=== PATIENT | female | born 1995 | race Caucasian/White ===

== ENCOUNTER 2021-04-08 23:47 | Emergency (ER) | payer OTHER ==
[~2021-04-08] VITALS: Ht 162.6 cm; Wt 59.1 kg
[2021-04-08] MEDS ORDERED: UNKNOWN ANXIETY MED (23:56)
[2021-04-09 01:11] LABS: HEMATOCRIT 50.5 % (36.0-47.0); HEMOGLOBIN 16.5 g/dl (12.0-15.5); MEAN CORPUSCULAR HEMOGLOBIN 30.3 pg (27.0-33.0); MEAN CORPUSCULAR HGB CONC 32.7 g/dl (32.0-36.5); MEAN CORPUSCULAR VOLUME 92.7 fl (80.0-96.0); PLATELET COUNT, AUTOMATED 296 10^3/uL (150-450); RED BLOOD COUNT 5.45 10^6/uL (4.00-5.40); WHITE BLOOD COUNT 8.1 10^3/uL (4.0-10.0)
[2021-04-09 01:18] LABS: AMPHETAMINES LEVEL URINE NEGATIVE (NEGATIVE); BARBITURATES URINE NEGATIVE (NEGATIVE); BENZODIAZEPINES URINE NEGATIVE (NEGATIVE); CANNABINOIDS URINE NEGATIVE (NEGATIVE); COCAINE METABOLITE URINE NEGATIVE (NEGATIVE); METHADONE URINE NEGATIVE (NEGATIVE); OPIATES URINE NEGATIVE (NEGATIVE); PHENCYCLIDINE URINE NEGATIVE (NEGATIVE)
[2021-04-09] MEDS ORDERED: LEXA1TAB2 PO (01:40)
[2021-04-09] MEDS ORDERED: HYDR-3363 PO (01:42)
[2021-04-09] MEDS ORDERED: MONT10TA97 PO (01:42)
[2021-04-09] MEDS ORDERED: MED REC COMMENT (01:42)
[2021-04-09] MEDS ORDERED: HOME MED LIST COMPLETE! XX SCH (01:45)
[2021-04-09 01:47] LABS: ACETAMINOPHEN LEVEL < 2.0 UG/ML (10.0-30.0); ALBUMIN 4.3 GM/DL (3.2-5.2); ALT/SGPT 18 U/L (12-78); BILIRUBIN,DIRECT 0.1 MG/DL (0.0-0.2); BILIRUBIN,TOTAL 0.3 MG/DL (0.2-1.0); BLOOD UREA NITROGEN 8 MG/DL (7-18); CALCIUM LEVEL 8.9 MG/DL (8.5-10.1); CARBON DIOXIDE LEVEL 27 MEQ/L (21-32); CHLORIDE LEVEL 107 MEQ/L (98-107); CREATININE FOR GFR 0.81 MG/DL (0.55-1.30); ETHYL ALCOHOL (ETHANOL) 0.301 % (0.000-0.010); GLOMERULAR FILTRATION RATE > 60.0 (>60); GLUCOSE, FASTING 108 MG/DL (70-100); SALICYLATE LEVEL < 1.7 MG/DL (5.0-30.0); SODIUM LEVEL 143 MEQ/L (136-145); TOTAL PROTEIN 7.8 GM/DL (6.4-8.2)
[2021-04-09] MEDS ORDERED: ACETAMINOPHEN TAB 650MG DOSE (2X325MG) PO ONE ×3 (04:35→21:35)
[2021-04-09] MEDS ORDERED: ONDANSETRON 4 MG ORAL DISINTEGRATING TAB PO ONE ×2 (04:35→09:20)
[2021-04-09] MEDS ORDERED: NS 1,000 ML IV ONE ×2 (04:40)
[2021-04-09] MEDS ORDERED: ONDANSETRON 4MG/2ML VIAL IV ONE (04:45)
[2021-04-09] MEDS ORDERED: ONDANSETRON 4MG/2ML VIAL As Ordered ONE (04:56)
[2021-04-09] MEDS ORDERED: ESCITALOPRAM OXALATE 10 MG TAB (LEXAPRO) PO ONE (11:05)
[2021-04-10 01:33] VITALS: BP 118/80
== END 2021-04-10 01:37 | disposition short-term general hospital (02) ==
LOC: M ED 23:47
DX: F32.9 Major depressive disorder, single episode, unspecified (principal); F10.10 Alcohol abuse, uncomplicated; R45.851 Suicidal ideations; F41.9 Anxiety disorder, unspecified
CPT/HCPCS: 80048; 80076; 80143; 80307; 82077; 84443; 85027; 87798; 93005; 96374; 99284; J2405; Q0162

== ENCOUNTER 2021-09-17 08:11 | Emergency (ER) | payer OTHER ==
[~2021-09-17] VITALS: Ht 162.6 cm; Wt 56.8 kg
[~2021-09-17 08:11] MED LIST: HYDR-3363 PO; LEXA1TAB2 PO; MED REC COMMENT; MONT10TA97 PO; UNKNOWN ANXIETY MED
[2021-09-17 08:45] LABS: BASO # 0.1 10^3/uL (0.0-0.2); BASO % 0.7 % (0.0-1.0); EOS # 0.2 10^3/uL (0.0-0.5); EOS % 2.9 % (0.0-3.0); HEMATOCRIT 45.5 % (36.0-47.0); HEMOGLOBIN 15.1 g/dl (12.0-15.5); LYMPH # 1.7 10^3/uL (1.5-5.0); MEAN CORPUSCULAR HEMOGLOBIN 30.9 pg (27.0-33.0); MEAN CORPUSCULAR HGB CONC 33.2 g/dl (32.0-36.5); MONO # 0.3 10^3/uL (0.0-0.8); MONO % 4.4 % (2.0-8.0); NEUTROPHILS # 5.4 10^3/uL (1.5-8.5); NEUTROPHILS % 69.9 % (36.0-66.0); PLATELET COUNT, AUTOMATED 293 10^3/uL (150-450); RED BLOOD COUNT 4.89 10^6/uL (4.00-5.40); WHITE BLOOD COUNT 7.7 10^3/uL (4.0-10.0)
[2021-09-17 08:59] LABS: BLOOD UREA NITROGEN 8 MG/DL (7-18); CALCIUM LEVEL 8.4 MG/DL (8.5-10.1); CARBON DIOXIDE LEVEL 23 MEQ/L (21-32); CHLORIDE LEVEL 115 MEQ/L (98-107); GLOMERULAR FILTRATION RATE > 60.0 (>60); GLUCOSE, FASTING 96 MG/DL (70-100); POTASSIUM SERUM 3.9 MEQ/L (3.5-5.1); SODIUM LEVEL 144 MEQ/L (136-145)
[2021-09-17 10:05] LABS: APPEARANCE, URINE CLEAR (CLEAR); BACTERIA, URINE AUTO NEGATIVE (NEGATIVE); BILIRUBIN, URINE AUTO NEGATIVE (NEGATIVE); BLOOD, URINE BLOOD 2+ (NEGATIVE); COLOR, URINE YELLOW (YELLOW); GLUCOSE, URINE (UA) AUTO NEGATIVE (NEGATIVE); KETONE, URINE AUTO NEGATIVE (NEGATIVE); LEUKOCYTE ESTERASE, URINE AUTO NEGATIVE (NEGATIVE); MUCUS, URINE SMALL (NEGATIVE); NITRITE, URINE AUTO NEGATIVE (NEGATIVE); PROTEIN, URINE AUTO NEGATIVE (NEGATIVE); RBC, URINE AUTO 31 /HPF (0-3); SPECIFIC GRAVITY URINE AUTO 1.008 (1.002-1.035); SQUAMOUS EPITHELIAL CELL UR AU 0 /HPF (0-6); UROBILINOGEN, URINE AUTO 0.2 mg/dL (0.0-2.0); WBC, URINE AUTO 1 /HPF (0-3)
[2021-09-17 10:26] LABS: URINE PREG TEST NEGATIVE (NEGATIVE)
[2021-09-17] MEDS ORDERED: LR 1,000 ML IV ONE (12:55)
[2021-09-17] MEDS ORDERED: PERC5TAB12 PO (13:53)
[2021-09-17] MEDS ORDERED: ONDA4TAB6 PO (13:54)
[2021-09-17 14:14] VITALS: BP 103/67
== END 2021-09-17 14:22 | disposition home or self-care (01) ==
LOC: EDBD 08:11 → M ED 08:11
DX: N20.0 Calculus of kidney (principal); R93.89 Abnormal findings on diagnostic imaging of other specified body structures; Z97.5 Presence of (intrauterine) contraceptive device; Z79.899 Other long term (current) drug therapy

== ENCOUNTER 2023-12-18 20:08 | Emergency (ER) | payer OTHER ==
[~2023-12-18] VITALS: Ht 162.6 cm; Wt 60.6 kg
[~2023-12-18 20:08] MED LIST changes: +ONDA-282 PO; +PERC5TAB12 PO
[2023-12-18 20:11] VITALS: TEMP 99.2
[2023-12-18] MEDS ORDERED: ACET-910 PO (20:22)
[2023-12-18 21:52] LABS: BASO % 0.4 % (0.0-1.0); EOS % 0.2 % (0.0-3.0); HEMATOCRIT 46.8 % (36.0-47.0); HEMOGLOBIN 15.6 g/dl (12.0-15.5); LYMPH # 0.6 10^3/uL (1.5-5.0); LYMPH % 5.6 % (24.0-44.0); MEAN CORPUSCULAR HEMOGLOBIN 31.5 pg (27.0-33.0); MEAN CORPUSCULAR HGB CONC 33.3 g/dl (32.0-36.5); MEAN CORPUSCULAR VOLUME 94.4 fl (80.0-96.0); MONO # 0.7 10^3/uL (0.0-0.8); MONO % 6.9 % (2.0-8.0); NEUTROPHILS # 8.4 10^3/uL (1.5-8.5); NEUTROPHILS % 86.6 % (36.0-66.0); PLATELET COUNT, AUTOMATED 270 10^3/uL (150-450); RED BLOOD COUNT 4.96 10^6/uL (4.00-5.40); WHITE BLOOD COUNT 9.7 10^3/uL (4.0-10.0)
[2023-12-18] MEDS: ACETAMINOPHEN 325 MG TAB PO ONE (22:09)
[2023-12-18 22:15] LABS: BLOOD UREA NITROGEN 7 MG/DL (9-23); CALCIUM LEVEL 9.2 MG/DL (8.5-10.1); CARBON DIOXIDE LEVEL 26 MMOL/L (20-31); CHLORIDE LEVEL 104 MMOL/L (98-107); CREATININE FOR GFR 0.76 MG/DL (0.55-1.30); GLOMERULAR FILTRATION RATE > 60.0 (>60); GLUCOSE, FASTING 109 MG/DL (60-100); MAGNESIUM LEVEL 1.9 MG/DL (1.8-2.4); SODIUM LEVEL 136 MMOL/L (136-145)
[2023-12-18 22:23] LABS: INR 1.12; PARTIAL THROMBOPLASTIN TIME 30.6 SECONDS (24.8-34.2)
[2023-12-18 22:43] LABS: HCG, SERUM QUALITATIVE NEGATIVE (NEGATIVE)
[2023-12-18 23:13] VITALS: BP 118/65; O2SAT 97
[2023-12-19] MEDS ORDERED: ONDANSETRON 4MG 2ML VIAL As Ordered ONE (00:12)
[2023-12-19] MEDS: KETOROLAC 30 MG/ML 1ML VIAL IV ONE (00:14)
[2023-12-19] MEDS: ONDANSETRON 4MG 2ML VIAL IV ONE (00:36)
[2023-12-19] MEDS ORDERED: NAPR-885 PO (01:03)
[2023-12-19] MEDS ORDERED: PSEU30TA87 PO (01:04)
[2023-12-19] MEDS ORDERED: ONDA-282 PO (01:31)
== END 2023-12-19 01:45 | disposition home or self-care (01) ==
LOC: M ED 20:08
DX: G43.909 Migraine, unspecified, not intractable, without status migrainosus (principal); J01.90 Acute sinusitis, unspecified; J18.1 Lobar pneumonia, unspecified organism; F41.9 Anxiety disorder, unspecified; Z79.899 Other long term (current) drug therapy
CPT/HCPCS: 71046; 80048; 83605; 83735; 84703; 85025; 85610; 85730; 87486; 87581; 87633; 87798; 96374; 96375; 99283; J1885; J2405